=== PATIENT | female | born 2000 | race Caucasian/White ===

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

== ENCOUNTER 2018-10-12 17:45 | Emergency (ER) | payer MEDICAID ==
[~2018-10-12] VITALS: Ht 175.3 cm; Wt 88.5 kg
[2018-10-12 21:20] VITALS: BP 112/61
== END 2018-10-12 21:22 | disposition home or self-care (01) ==
LOC: ED 20:17
DX: A56.09 Other chlamydial infection of lower genitourinary tract (principal); N89.8 Other specified noninflammatory disorders of vagina; A60.03 Herpesviral cervicitis; A60.04 Herpesviral vulvovaginitis
CPT/HCPCS: 81003; 81025; 87210; 87491; 87591; 87808; 96372; 99283; J0696; 51701; 99284; P9612